=== PATIENT | male | born 1955 | race Caucasian/White ===

== ENCOUNTER 2020-06-05 19:53 | Inpatient (IN) | payer OTHER ==
[~2020-06-05] VITALS: Ht 177.8 cm; Wt 56.3 kg
[2020-06-05] MEDS ORDERED: SODIUM CHLORIDE 0.9% 2,000 ML IV ONE (20:45)
[2020-06-05] MEDS ORDERED: NALOXONE HCL 0.4 MG/ML VIAL IV ONE (20:45)
[2020-06-05 21:24] LABS: Basophils # (auto) 0.1 10 ^3/uL (0-0.2); Basophils % (auto) 0.4 % (0.0-2.0); Eosinophils # (auto) 0.1 10 ^3/uL (0-0.8); Eosinophils % (auto) 0.3 % (0.0-7.0); Hematocrit 51.1 % (41.0-53.0); Hemoglobin 16.7 g/dL (13.5-17.5); Lymphocytes # (auto) 0.8 10 ^3/uL (0.4-5.4); Lymphocytes % (auto) 5.3 % (10.0-50.0); Mean Corpuscular Hemoglobin 31.5 pg (28.0-32.0); Mean Corpuscular Hgb Conc. 32.7 g/dL (32.0-36.0); Mean Corpuscular Volume 96.2 fL (80.0-100.0); Monocytes # (auto) 0.9 10 ^3/uL (0-1.3); Monocytes % (auto) 5.7 % (0.0-12.0); Neutrophils # (auto) 13.7 10 ^3/uL (1.6-8.6); Neutrophils % (auto) 88.3 % (37.0-80.0); Platelet Count (auto) 243 10^3/uL (140-450); Red Blood Cells 5.31 10^6/uL (4.5-5.90); Red Cell Distribution Width 13.5 % (11.8-14.3); White Blood Cell 15.5 10^3/uL (4.4-10.8)
[2020-06-05 21:43] LABS: Salicylate 1.8 mg/dL (2.8-20.0)
[2020-06-05 21:45] LABS: Alanine Aminotransferase 32 U/L (16-61); Albumin 3.6 g/dL (3.4-5.0); Anion Gap 5 (5-15); Aspartate Aminotransferase 38 U/L (15-37); BUN/Creatinine Ratio 14.8; Blood Alcohol < 3.0 mg/dL (0-5); Blood Urea Nitrogen 17 mg/dL (7-18); Calcium 8.5 mg/dL (8.5-10.1); Carbon Dioxide 30 mmol/L (21-32); Chloride 101 mmol/L (98-107); GFR African American 83 mL/min; GFR Non-African American 68 mL/min; Glucose 171 mg/dL (74-106); Magnesium 2.3 mg/dL (1.6-2.6); Potassium 4.8 mmol/L (3.5-5.1); Sodium 136 mmol/L (136-145)
[2020-06-05 21:46] LABS: Acetaminophen < 2.0 ug/mL (10-30); INR 1.05 (0.9-1.15); Partial Thromboplastin Time 32.4 sec (23.0-31.2)
[2020-06-05 21:47] LABS: Alkaline Phosphatase 140 U/L (45-117); Bilirubin, Total 0.3 mg/dL (0.2-1.0)
[2020-06-05 21:50] LABS: Lactic Acid w/Reflex 2.7 mmol/L (0.4-2.0)
[2020-06-05] MEDS ORDERED: PIPERACILLIN-TAZOB 3.375GM 100 ML IV ONE (22:45)
[2020-06-06] MEDS ORDERED: DOCUSATE SOD 100 MG CAP PO PRN (01:30)
[2020-06-06] MEDS ORDERED: HYDROcodone-ACET 5/325MG TAB PO PRN (01:30)
[2020-06-06] MEDS ORDERED: SODIUM CHLORIDE 0.9% 1,000 ML IV SCH (01:30)
[2020-06-06] MEDS ORDERED: ACETAMINOPHEN 325 MG TAB PO PRN (01:30)
[2020-06-06] MEDS ORDERED: MORPHINE SULF INJ 2 MG/ML SYRINGE 1ML IV PRN (01:30)
[2020-06-06] MEDS ORDERED: MORPHINE SULFATE 4 MG/ML SYR/VIAL IV PRN (01:30)
[2020-06-06] MEDS ORDERED: ONDANSETRON HCL 4 MG/2 ML VIAL IV PRN (01:30)
[2020-06-06] MEDS ORDERED: NITROGLYCERIN 0.4 MG SL TAB SL PRN (01:30)
[2020-06-06 02:39] LABS: Albumin 3.1 g/dL (3.4-5.0); BUN/Creatinine Ratio 19.1; Calcium 8.3 mg/dL (8.5-10.1); Potassium 4.6 mmol/L (3.5-5.1)
[2020-06-06 02:50] LABS: Bilirubin, Total 0.3 mg/dL (0.2-1.0); Total Protein 6.5 g/dL (6.4-8.2)
[2020-06-06 05:05] VITALS: BP 106/72
--- NOTE | 2020-06-06 05:05 | NUR ---
Telemetry admit from ER to [facility] Unit RISSA HERNANDEZ admitted to Telemetry unit. Patient oriented to RADHAMES BOOTHE, primary RN, unit, room, bed, and unit policies regarding patient care and visiting hours. Patient now on continuous telemetry monitoring, tele box # 9 and telemetry reading on arrival to unit is sinus rhythm. Patient is alert and oriented x4. Patient denies pain at this time. Patient reports shortness of breath at this time. Per patient he is always short of breath secondary to his COPD. Patient is on 3L/min NC, SPO2: 96% at this time. Instructed on plan of care and encouraged patient to call for assistance as needed, patient verbalized understanding. Bed is locked in lowest position, side rails x2 are up, call light is within reach, and bed alarm is on.
[2020-06-06] MEDS: PIPERACILLIN-TAZOB 3.375GM 100 ML IV SCH ×2 (05:45→14:00)
[2020-06-06] MEDS: SODIUM CHLOR 0.9% PF (SALINE LOCK) 10ML VIAL/SYR IV SCH ×2 (05:45→14:00)
--- NOTE | 2020-06-06 06:00 | NUR ---
Pictures Patient noted to have open skin tear to right forearm, left elbow, and upper arm. Pictures taken for reference and optifoam placed over skin tears.
[2020-06-06] MEDS ORDERED: LISI-648 PO (06:52)
--- NOTE | 2020-06-06 08:00 | NUR ---
OPENING SHIFT NOTE: PATIENT RESTING IN BED SEMI FOWLERS. RESPIRATIONS EVEN AND UNLABORED. A&OX4. NO S/S OF DISTRESS AT THIS TIME. PATIENT ON ROOM AIR WITH OXYGEN SATURATIONS AT 94-96%. INSTRUCTED ON POC. BED IN LOWEST LOCKED POSITION WITH CALL LIGHT WITHIN REACH.
[2020-06-06 08:42] VITALS: BP 133/64
[2020-06-06 08:53] LABS: Basophils # (auto) 0 10 ^3/uL (0-0.2); Basophils % (auto) 0.4 % (0.0-2.0); Eosinophils # (auto) 0 10 ^3/uL (0-0.8); Eosinophils % (auto) 0.2 % (0.0-7.0); Hematocrit 45.3 % (41.0-53.0); Hemoglobin 14.9 g/dL (13.5-17.5); Lymphocytes # (auto) 0.5 10 ^3/uL (0.4-5.4); Lymphocytes % (auto) 5.3 % (10.0-50.0); Mean Corpuscular Hemoglobin 31.5 pg (28.0-32.0); Mean Corpuscular Volume 95.6 fL (80.0-100.0); Monocytes # (auto) 0.8 10 ^3/uL (0-1.3); Monocytes % (auto) 8.3 % (0.0-12.0); Neutrophils # (auto) 8.5 10 ^3/uL (1.6-8.6); Neutrophils % (auto) 85.8 % (37.0-80.0); Platelet Count (auto) 213 10^3/uL (140-450); Red Blood Cells 4.74 10^6/uL (4.5-5.90); Red Cell Distribution Width 13.4 % (11.8-14.3)
[2020-06-06 09:32] LABS: Albumin 3.1 g/dL (3.4-5.0); Calcium 8.3 mg/dL (8.5-10.1); Potassium 4.6 mmol/L (3.5-5.1)
[2020-06-06 09:37] LABS: BUN/Creatinine Ratio 19.7; Bilirubin, Total 0.3 mg/dL (0.2-1.0); Total Protein 6.5 g/dL (6.4-8.2)
[2020-06-06] MEDS ORDERED: ENOXAPARIN SOD 40 MG/0.4 ML SYRINGE SC SCH (10:00)
[2020-06-06] MEDS ORDERED: MULTIPLE VITAMIN TAB PO SCH (10:00)
[2020-06-06] MEDS ORDERED: FAMOTIDINE 20 MG TAB PO SCH (10:00)
[2020-06-06] MEDS ORDERED: ASCORBIC ACID 500 MG TAB PO SCH (10:00)
[2020-06-06] MEDS ORDERED: ZINC SULFATE 220mg CAP or TAB PO SCH (10:00)
--- NOTE | 2020-06-06 11:42 | NUR ---
WOUND CARE NOTE: Wound care in to see patient per wound care request regarding multiple skin tears that are noted on admission. Bedside nurse took photograph of patient's wounds upon admission for reference. Patient is 64 years old male with admitting diagnosis of ALOC. Patient is resting in bed in Rm. 244-6. He's awake, alert and oriented. He's in no stated pain at this time. He's ambulatory and self turning and repositioning. His Paxton score is 20. Patient noted with multiple intact ecchymosis to bilateral arm with two open partial thickness skin tear over ecchymotic skin to Lt upper arm (1x1cm) and Rt elbow (1.5x1cm). Skin tears are red with bright red and purple ecchymotic laura wound, scant serous drainage noted, no odor noted. Patient's nurse reported that per reports,patient found down on the floor unresponsive by his family. Cleansed patient's skin tears with NS, patted dry with gauze, applied Thera honey gel and covered with Opti foam gentle dressing. No pressure injury noted. Patient tolerated well. No further wound care monitoring needed at this time. RECOMMENDATION: Nursing to continue with Q3Days/PRN dressing change to Lt upper arm and Rt elbow skin tears per MD order, reconsult for active wound, pressure injury, Low Paxton score of 12 and below. Addendum: 06/06/20 at 1504 by Lorena Murrell RN Amended: Links added.
[2020-06-06 12:33] VITALS: BP 118/72
--- NOTE | 2020-06-06 14:19 | NUR ---
CALLED RADIOLOGY TO FOLLOW UP ON STAT CT ANGIO. PER VINCE GUIDANCE ADVISER. CT MACHINE IS ACTING UP, BUT THEY ARE AWARE OF ORDER. PATIENT CONTINUED TO MAINTAIN NPO STATUS.
--- NOTE | 2020-06-06 15:55 | NUR ---
PATIENT REFUSING CT AT THIS TIME. STATING THERE IS NOTHING WE CAN DO FOR HIM AND THAT THE DAMAGE HAS ALREADY BEEN DONE AND HE KNOWS HE WILL HAVE TROUBLE BREATHING FOR THE REST OF HIS LIFE. PATIENT STATING HE WILL LEAVE AMA. THIS RN ATTEMPTING TO EXPLAIN IMPORTANCE OF CT AND RISKS OF LEAVING HOSPITAL AGAINST MEDICAL ADVICE. PATIENT VERBALIZING UNDERSTANDING AND CONTINUES TO STATE HE IS GOING TO LEAVE AMA AND REFUSING EXAM.
--- NOTE | 2020-06-06 16:21 | NUR ---
REGARDING PATIENT AMA: PATIENT ATTEMPTING TO LEAVE HOSPITAL AGAINST MEDICAL ADVICE. PATIENT IS ALERT AND ORIENTED X4. DURING AMBULATION PATIENT OXYGENATION DROPPED TO 52% WITH NOTABLE LABORED BREATHING RR AT 28. PATIENT SAT IN A CHAIR AND THIS RN INFORMED THAT PATIENT IS PUTTING HIMSELF AT RISK OF DYING IF HE LEAVES THE HOSPITAL HIS CURRENT STATE. PATIENT CONTINUING TO STATE HE DOES NOT CARE, HIS RIDE IS HERE AND HE IS GOING TO LEAVE REGARDLESS. INFORMED PATIENT THAT HOSPITAL COULD ARRANGE FOR HOME OXYGEN WHEN PATIENT IS CLEARED FOR DISCHARGE. PATIENT REFUSING AND SAYING THAT THAT COULD HELP BUT HE IS NOT GOING TO WAIT. RN MISSAEL AND MECHANIC WELDER MATILDE WITNESS TO PATIENTS REFUSAL TO STAY AT HOSPITAL. PATIENT ESCORTED DOWNSTAIRS BY THIS RN AND MECHANIC WELDER MATILDE. INFORMED LOCOMOTIVE DRIVER OF PATIENT EPISODE AND INFORMED PATIENT IS LEAVING AGAINST MEDICAL ADVICE. PATIENT TELLING LOCOMOTIVE DRIVER HE IS NOT GOING TO STAY AT THE HOSPITAL. LOCOMOTIVE DRIVER STATING THAT HE WANT TO SPEAK TO PATIENT ADVOCATE. INSTRUCTED TO CALL REAMING PRESS OPERATOR FORCONTACT INFO AND INFORMED THAT HOSPITAL CANNOT HOLD PATIENTS AGAINST THEIR NUNO. PATIENT ENTERED TRUCK WITH LOCOMOTIVE DRIVER LEFT. PAGED AND SPOKE TO Jo Ann PARISI TO INFORM OF PATIENTS AMA.
[2020-06-06 16:32] VITALS: BP 144/84
[2020-06-06] MEDS ORDERED: CARBAMIDE PEROXIDE 6.5% OTIC(EAR) SOLN 15ML EACH EAR SCH (22:00)
== END 2020-06-06 16:20 | disposition left against medical advice (07) | DRG 812 ==
LOC: ER 19:53 → EDBD 19:53 → TELE 19:54 → TELE-E-ADS 06-06 05:05
PROVIDERS: ADMIT Nurse Practitioner Family; ATTEND Nurse Practitioner Family
DX: T43.621A Poisoning by amphetamines, accidental (unintentional), initial encounter (principal); A41.9 Sepsis, unspecified organism; G92 Toxic encephalopathy; J96.01 Acute respiratory failure with hypoxia; R73.9 Hyperglycemia, unspecified; G89.29 Other chronic pain; Z91.19 Patient's noncompliance with other medical treatment and regimen; J32.0 Chronic maxillary sinusitis; M54.9 Dorsalgia, unspecified; J44.1 Chronic obstructive pulmonary disease with (acute) exacerbation; Z20.828 Contact with and (suspected) exposure to other viral communicable diseases; F15.10 Other stimulant abuse, uncomplicated
CPT/HCPCS: 36415; 36600; 70450; 71045; 80053; 80320; 80329; 82728; 82805; 83036; 83605; 83735; 84484; 85025; 85379; 85610; 85730; 87040; 87426; 87804; 99291; G0378; J2543